=== PATIENT | male | born 1940 | race Two or more races ===

== ENCOUNTER 2018-08-01 15:14 | Inpatient (IN) | payer OTHER ==
[~2018-08-01] VITALS: Ht 172.7 cm; Wt 81.6 kg
[2018-08-13] MEDS ORDERED: ARICEPT10 MG PO (14:54)
[2018-08-13] MEDS ORDERED: AMLODIPINE BESYL5 MG PO (14:55)
[2018-08-13] MEDS ORDERED: AVAPRO300 MG PO (14:55)
[2018-08-21] MEDS ORDERED: OMEPRAZOLE20 MG PO (10:23)
[2018-08-21] MEDS ORDERED: INTESTINEX680 M1 PO (10:23)
[2018-08-21] MEDS ORDERED: PERCOCET 5-3251 EACH PO (10:23)
== END 2018-08-21 12:28 | disposition home or self-care (01) | DRG 331 ==
LOC: SURG 08-10 15:15 → O/R 08-17 07:16 → SURH 08-17 07:16 → SURG 08-17 15:15 → SURH 08-17 19:23
PROVIDERS: ADMIT Surgery
PROC: 07TB4ZZ Resection of Mesenteric Lymphatic, Percutaneous Endoscopic Approach (ICD-10-PCS; 2018-08-17)
PROC: 0DJD8ZZ Inspection of Lower Intestinal Tract, Via Natural or Artificial Opening Endoscopic (ICD-10-PCS; 2018-08-17)
PROC: 0DTN4ZZ Resection of Sigmoid Colon, Percutaneous Endoscopic Approach (ICD-10-PCS; principal; 2018-08-17 15:45)
DX: C18.7 Malignant neoplasm of sigmoid colon (principal); R59.0 Localized enlarged lymph nodes; I10 Essential (primary) hypertension; F10.20 Alcohol dependence, uncomplicated